=== PATIENT | female | born 1980 | race Caucasian/White ===

== ENCOUNTER 2020-07-26 21:13 | Emergency (ER) | payer OTHER, SELFPAY ==
[2020-07-26 21:14] VITALS: BP 149/91; PULSE 58; RESP 16; TEMP 36.1; O2SAT 100; BMI 30.7
--- NOTE | 2020-07-26 21:35 | ED.VISSUMM ---
- ER Visit Summary Date of Service: 07/26/20 Chief Complaint: Nausea, vomiting, abdominal pain History of Present Illness: The patient is a 39 F who presents with nausea and vomiting for the past 3 days. Patient states she is unable to keep anything down. Patient was seen at [facility] in [place] today. Patient states she had lab work and a CT scan of her brain and sinuses which were negative. Patient states she was given Zofran ODT which has not been helping. Patient states she was told she had a sinusitis and was given antibiotics. Patient admits to some cramping abdominal pain that comes on just prior to vomiting. Patient states it goes away after she vomits. Patient admits to subjective chills. Patient denies any urinary complaints. Physical Examination: Vital signs are stable. Patient is afebrile. Patient is in no acute distress. Oral mucosa is pink and moist. Neck is supple. Trachea is midline. There is no JVD. Heart was regular rate and rhythm. Lungs are clear and equal bilateral. Abdomen is soft. Bowel sounds are normal. There is minimal diffuse tenderness. There is no rebound or guarding noted. Cranial nerves II through XII are intact. There are no focal motor or sensory deficits noted. Extremities are intact. There is no calf tenderness or edema. Test Results: CBC, comprehensive metabolic profile, and lipase were obtained were all within normal limits. Urinalysis was obtained and was within normal limits. CT scan of the abdomen and pelvis with oral and IV contrast was ordered and is pending. Emergency Department Course and Treatment: Patient was given IV fluids and Zofran here. Patient had minimal relief of her nausea with this. Patient was given an injection of Phenergan. Patient states this did help but her nausea started to come back while she was drinking the oral contrast for CT of the abdomen. Patient was ordered another dose of Phenergan however she preferred something IV and requested Zofran again. Patient was given a dose of Zofran again. Disposition: Care of the patient was turned over to the oncoming physician pending CT scan. Impression: 1. Nausea and vomiting 2. Abdominal pain This note was generated with [employer] dictation software. It may contain incorrect words, spelling, and punctuation that were not noted in review of the chart prior to signing ED Disposition - Plan for ED Patient: Referrals: [facility] Doctor,Out of [NON-STAFF] -
[2020-07-26] MEDS: Ondansetron 4 MG/2 ML Vial IV ×2 (21:43→23:34)
[2020-07-26] MEDS: 0.9% Normal Saline 1,000 ML 1000 ML IV (21:43)
[2020-07-26 21:46] LABS: Absolute Lymphocyte Count 1.37 X10^3/uL (0.83-4.51); Absolute Neutrophil Count 4.4 X10^3/uL (2.0-7.7); Basophil# 0.01 X10^3/uL; Basophil% 0.2 % (0-1); Eosinophil# 0.03 X10^3/uL; Eosinophils% 0.5 % (0-5); Hematocrit 42.2 % (37-47); Lymphocyte # 1.37 X10^3/ul (4.0); Lymphocyte % 21.3 % (19-41); Mean Corp Hgb Conc 33.2 g/dL (32-36); Mean Corpuscular Volume 93.6 fL (81-99); Mean Platelet Vol. 9.5 fl (6.2-12.0); Monocyte# 0.56 X10^3/uL; Monocyte% 8.7 % (0-10); NRBC Flagged by Analyzer 0 % (0-5); Neutrophil # 4.44 X10^3/uL (2.7-7.7); Platelet Count 268 K/mm3 (150-450); RBC Distribution Width CV 12.7 % (11.6-14.6); RBC Distribution Width SD 43.8 fl (35.1-43.9); Red Blood Count 4.51 M/mm3 (4.2-5.4); White Blood Count 6.4 K/mm3 (4.4-11.0)
[2020-07-26] MEDS: proMETHazine 25 MG/ML Syringe 12.5 MG IM (22:17)
[2020-07-26 22:18] LABS: ALB/GLOB Ratio 1.2 RATIO (0.9-2.4); AST(SGOT) 21 U/L (15-37); Alanine Aminotransfer ALT/SGPT 17 U/L (13-56); Albumin, Serum 4.2 g/dL (3.2-5.0); Alkaline Phosphatase 65 U/L (45-117); Anion Gap 7 (5-15); BUN 11 mg/dL (7-18); BUN/Creat Ratio 14.6 RATIO (10-20); Calcium,Total 8.7 mg/dL (8.5-10.1); Chloride 110 mmol/L (98-107); Creatinine, Serum 0.75 mg/dL (0.55-1.02); EST Glomerular Filtration Rate 91 mL/min (>60); Est Glom Filt Rate - Afr Amer 111 mL/min (>60); Estimated Creatinine Clearance 80.44 ml/min; Globulin 3.5 g/dL (2.2-4.2); Glucose 85 mg/dL (74-106); Lipase 54 U/L (73-393); Potassium 3.6 mmol/L (3.5-5.1); Protein, Total 7.7 g/dL (6.4-8.2); Sodium Level 141 mmol/L (136-145)
[2020-07-26 22:48] LABS: Bacteria 0 SEEN /hpf (None Seen); White Blood Cells 0 SEEN /hpf (0-5)
[2020-07-26 22:50] LABS: Color, Urine Yellow (Yellow); Glucose, Dipstick Normal (Normal); Leukocyte Esterase-Dipstick Negative /ul (Negative); Nitrite-Dipstick Negative (Negative); Occult Blood-Urine 25 /ul (Negative); Protein-Dipstick 15 mg/dl (Negative); Urine Bilirubin Dipstick Negative (Negative); Urine Clarity Sl. Cloudy (Clear); Urine Urobilinogen 1 mg/dl (Normal); Urine pH 6.5 (5.0 - 8.0)
[2020-07-26 22:54] LABS: Ketone-Dipstick 150 mg/dl (Negative)
[2020-07-26 22:59] LABS: Amorphous Sediment 1+ URATE; Mucous, Urine 3+ /hpf (<or=2+); Red Blood Cells-Urine 0-5 SEEN /hpf (0-5); Squamous Epithelial Cells - UA 0-5 SEEN /hpf (5-10)
[2020-07-26 23:29] VITALS: BP 121/86; PULSE 57; RESP 16; O2SAT 100
[2020-07-27 01:53] VITALS: BP 114/80; PULSE 53; RESP 16; O2SAT 100
[2020-07-27] MEDS: Metoclopramide 10 MG/2 ML Vial 5 MG IV (02:51)
--- NOTE | 2020-07-27 03:19 | ED.DEP ---
ED Disposition - Plan for ED Patient: Disposition: Home or Assisted Living Diagnosis: Diffuse abdominal pain, Acute gastritis without bleeding Instructions: ED Gastritis, ED Abdominal Pain Unkn Cause Fem Prescriptions: Dicyclomine HCl [Bentyl] 20 mg PO Q6H PRN #20 cap PRN Reason: abdominal pain Transmission Status: Pending to [id number] Metoclopramide [Reglan] 10 mg PO Q6H PRN #15 tab PRN Reason: Nausea/Vomiting Transmission Status: Pending to [id number] Referrals: [facility],Out of [NON-STAFF] - 3-5 Days if not improving
[2020-07-27 03:26] VITALS: BP 113/79; PULSE 79; RESP 16; O2SAT 100
--- NOTE | 2020-07-27 21:34 | CT_ITS ---
STUDY: CT ABDOMEN AND PELVIS WITH CONTRAST REASON FOR EXAM: Female, 39 years old. NAUSEA AND VOMITING X 3 DAYS,CHILLS -- HX:ZORAN''S DISEASE,HYSTERECTOMY,TUBAL RADIATION DOSAGE (If Supplied By Facility): CTDIvol = ( 15.35 ) mGy, DLP = ( 910.23 ) mGycm TECHNIQUE: Transaxial images were obtained from the dome of the diaphragm to the symphysis pubis without oral contrast. Oral and amp; IV Gastrografin and amp; 100mL Isovue-370 was administered. Sagittal and coronal images were reconstructed. Individualized dose optimization techniques were used for this CT. COMPARISON: None. FINDINGS: The visualized lung bases are unremarkable. The visualized portions of the heart are within normal limits. Subtle hypoattenuated lesions within the left liver lobe near the gallbladder foci measuring 2.7 x 2.0 cm and 1.4 x 2.3 cm. Differential diagnosis includes focal areas of fatty infiltration. Normal gallbladder and extrahepatic biliary system. Normal spleen. Normal pancreas. Normal bilateral adrenal glands. Small low-attenuation structure within the right mid lower renal pole measuring 5.5 mm, too small to characterize and statistically consistent with a cyst. Otherwise normal right kidney. Normal left kidney. Normal visualized stomach. Normal small intestine. Mild thickening of the wall throughout the ascending and transverse colon suggestive of early colitis. The appendix is visualized and appears normal. Normal abdominal aorta. Normal inferior vena cava. Normal retroperitoneum. Normal urinary bladder. Bilateral tubal ligation cysts demonstrated. Nonspecific bilateral follicular cysts. Normal abdominal wall. There are mild degenerative changes of the visualized lumbar spine. CT/Abdomen/Pelvis WITH Contrast IMPRESSION: Possible mild/early colitis. No acute appendicitis or bowel obstruction. Small low-attenuation lesions within the liver, incompletely characterized by current exam and most likely representing benign process given patient''s age. Further characterization with CT or MRI of the upper abdomen in nonacute setting, 3 phase protocol recommended. Electronically Signed: Rita Spence MD at 1:01 EST , Service support ,
== END 2020-07-27 03:27 | disposition home or self-care (01) ==
PROVIDERS: Emergency Provider Emergency Medicine
DX: K29.70 Gastritis, unspecified, without bleeding (principal); R10.84 Generalized abdominal pain; E03.9 Hypothyroidism, unspecified; F90.9 Attention-deficit hyperactivity disorder, unspecified type; K21.9 Gastro-esophageal reflux disease without esophagitis; Z79.899 Other long term (current) drug therapy
CPT/HCPCS: 74177; 80053; 81001; 83690; 85025; 96361; 96372; 96374; 96375; 96376; 99283; J7030; Q9967; A4216; J2405

== ENCOUNTER 2023-05-29 16:07 | Emergency (ER) | payer MEDICAID, SELFPAY ==
[2023-05-29 16:10] VITALS: BP 122/89; PULSE 84; RESP 16; TEMP 36.3; O2SAT 100; BMI 25.7
--- NOTE | 2023-05-29 16:36 | EDS_ITS ---
HPI HPI - GI History of Present Illness Chief Complaint: Nausea/Vomiting Informant: patient Abdominal Pain/Flank Pain Onset: Today Context: Gradual Onset Timing: Continuous Current Severity: Mild Maximum Severity: Mild Worsened by: Nothing Relieved by: Nothing Nausea/Vomiting/Emesis GI Symptom: Positive for Nausea and Vomiting Onset: Today Severity: Mild Diarrhea/Melena/Hematochezia GI Symptom: Positive for Diarrhea; Negative for Melena or Hematochezia Onset: Today Stool Quality: Positive for Loose Associated Symptoms Associated Symptoms: Negative for Dysuria, Frequency, Hematuria or Urgency Narrative Narrative: 42-year-old female with past medical history of Alvino thyroiditis. Prior hysterectomy. 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 She had similar symptoms with nausea vomiting diarrhea about a week ago resolved and returned in the last 24 hours. No hematemesis. No melena. Currently no fever. No dysuria. Says she has not been urinating today and feels dehydrated. Only denies any significant abdominal pain. Prior similar symptoms: Yes Recent Illness/Hospitalization: No PFSH PFS Medical History (Updated 05/29/23 @ 19:[address] Juan Banks MD) Nausea Home Medications dextroamphetamine-amphetamine 20 mg tablet 20 mg PO BID 07/26/20 [History Last Taken Unknown] duloxetine 60 mg capsule,delayed release 60 mg PO DAILY 07/26/20 [History Last Taken Unknown] lamotrigine 150 mg tablet 150 mg PO BID 07/26/20 [History Last Taken Unknown] levothyroxine 50 mcg tablet 50 mcg PO DAILY 07/26/20 [History Last Taken Unknown] liothyronine 5 mcg tablet 5 mcg PO DAILY 07/26/20 [History Last Taken Unknown] pantoprazole 20 mg tablet,delayed release 20 mg PO DAILY 07/26/20 [History Last Taken Unknown] dicyclomine 10 mg capsule 20 mg (2 x 10 mg) PO Q6H PRN abdominal pain #20 caps 07/27/20 [Rx Last Taken Unknown] metoclopramide HCl 10 mg tablet 10 mg PO Q6H PRN Nausea/Vomiting #15 tabs 07/27/20 [Rx Last Taken Unknown] ondansetron 4 mg disintegrating tablet 4 mg PO Q6H PRN nausea and vomiting #7 tabs 05/29/23 [Rx Last Taken Unknown] Allergy/AdvReac Type Severity Reaction Status Date / Time venlafaxine [From Effexor] AdvReac Swelling Verified 05/29/23 16:10 Social History Smoking Status: Never smoker ROS ROS ED ROS Narrative Nausea, vomiting and diarrhea. Review of Systems ROS Unobtainable: Denies due to encephalopathy Constitutional Constitutional ED: Denies chills or fever(s) ENT ENT ED: Denies ear pain Respiratory/Chest Respiratory/Chest: Denies cough or dyspnea Gastrointestinal Gastrointestinal: Reports diarrhea, nausea and vomiting; Denies abdominal pain, constipation or melena Genitourinary Genitourinary ED: Denies dysuria or hematuria Musculoskeletal Musculoskeletal: Denies arthralgias Integumentary Denies abscess Neurologic Neurologic: Denies headache(s) Psychiatric Psychiatric: Denies anxiety Endocrine Endocrinology: Denies polydipsia Hematologic/Lymphatic Hematologic/Lymphatic: Denies easy bleeding Allergic/Immunologic Allergic/Immunologic ED: Denies mouth swelling or tongue swelling EXAM Physical Exam Narrative Exam Narrative: 42-year-old female vital signs are stable initial blood pressure 132/89. She does not look septic toxic. Does look mildly dehydrated. H EENT exam mild dry mucous membranes. Neck nontender no lymphadenopathy. Lungs clear to auscultation bilaterally. Heart regular rhythm rate about 80 no murmur. Chest were nontender. Abdomen soft nontender. Nondistended normal bowel sounds no peritoneal signs. No right upper or right lower quadrant tenderness. No hernia or mass. Back nontender. Moving all 4 extremities. Nontender no edema. Neuro logically she is awake and alert with no focal motor deficits. Skin unremarkable. Const Vital Signs: 05/29/23 16:10 Temperature 97.4 F L Temperature Source Temporal Pulse Rate 84 Respiratory Rate 16 Blood Pressure 122/89 H Blood Pressure Mean 100 Pulse Ox 100 Positive well nourished and well developed; Negative for obese, cachectic, contractures or unkempt General Appearance ED: well developed and NAD; Negative for unkempt, cachectic, contractures or pallor Nutritional Appearance: Negative for cachectic or obese HEENT Reports dry mucous membranes; Denies moist mucous membranes normocephalic and atraumatic; Negative for trauma or tenderness Mouth ED: Yes dry mucous membranes Mouth: dry mucous membranes Eyes PERRL and EOMs intact bilaterally General Eye ED: Negative for pale conjunctiva or scleral icterus Neck no lymphadenopathy, supple and no JVD General: Negative for tenderness Carotids: Negative for other Lymph Lymphatic: Negative for other Resp normal respiratory effort and clear to auscultation bilaterally Effort and Inspection: Negative for respiratory distress Auscultation: Negative for rales, rhonchi or wheezes Cardio regular rhythm, S1 normal heart sound, S2 normal heart sound and no murmurs Rate: Negative for bradycardia or tachycardic GI non-tender, non-distended and no masses Inspection: Negative for abdominal distention Auscultation: normoactive bowel sounds Palpation: soft; Negative for tender, guarding, rigid, hepatomegaly, splenomegaly, hernia, mass, pulsatile mass or rebound tenderness present Back/Spine no CVA tenderness General Back: Negative for CVA tenderness Cervical Spine: Negative for cervical spine tenderness Thoracic Spine / Upper Back: Negative for thoracic spinal tenderness Lumbar Spine / Lower Back: Negative for lumbar spinal tenderness Coccyx: Negative for other Extremity full ROM General Extremety ED: Negative for edema or tenderness General Extremity: Negative for edema Neuro CN's II-XII intact bilaterally and moves all extremities Sensorium / Orientation: alert, oriented to person, oriented to place and oriented to time; Negative for orientation impaired, confused, lethargic or stuporous Motor Exam: strength 5/5 throughout Psych mental status grossly normal and thought process normal Appearance: Negative for unkempt Attitude: No agitated Mood & Affect: Negative for depressed, anxious or tearful Skin no wounds General Skin Exam: Negative for jaundice or pallor Lesions: no lesions Rashes: no rashes Trauma: Negative for abrasion Nails: Negative for discolored MDM MDM MDM Narrative Medical decision making narrative: 42-year-old with nausea, vomiting and diarrhea. Clinically sounds like a viral syndrome. She did not want to be COVID tested and I do not think is necessary. She will be treated with IV fluids. Zofran for nausea. Clinically she does look dehydrated. I will check screening labs because she had just twice in the last 2 weeks. Her abdomen is completely benign I do not think she needs any imaging. Repeat exam patient doing well at 7:27 PM. She will be discharged home. Zofran as needed for nausea. Fluids and rest. Return if worse or follow-up if not improving. Abdomen is nontender. History & Record Review Discussion w/independent historian: Patient Additional record(s) reviewed:: Prior inpatient record, Prior outpatient record, Prior ED visit and Prior labs Lab Data Attestation: I reviewed the patient's lab results. Lab results narrative: CBC normal. White count of 5. H&H 13 and 39. Platelets 222. Electrolytes unremarkable gap of 3 normal BUN of 17 creatinine 0.7. Glucose 97. Labs: Laboratory Results - last 24 hr 05/29/23 16:50 WBC 5.1 RBC 4.28 Hgb 13.5 Hct 39.1 MCV 91.4 MCH 31.5 MCHC 34.5 RDW Std Deviation 41.9 RDW Coeff of [place] 12.7 Plt Count 222 MPV 9.5 Immature Gran % (Auto) 0.200 Neut % (Auto) 86.5 H Lymph % (Auto) 4.9 L [place] % (Auto) 8.0 Eos % (Auto) 0.2 Baso % (Auto) 0.2 Absolute Neuts (auto) 4.4 Absolute Lymphs (auto) 0.25 L Nucleated RBC % 0 Differential Comment SCANNED Sodium 143 Potassium 3.4 L Chloride 111 H Carbon Dioxide 29.0 Anion Gap 3 L BUN 17 Creatinine 0.76 Estim Creat Clear Calc 80.58 Est GFR (MDRD) Af Amer 108 Est GFR (MDRD) Non-Af 89 BUN/Creatinine Ratio 22.5 H Glucose 97 Calcium 8.7 Discharge Plan Triage Chief Complaint: Nausea/Vomiting ED Provider: Juan Banks Dx/Rx/DC Orders Clinical Impression: Gastroenteritis, Viral syndrome Instructions: ED Gastroenteritis, Viral (Adult) Prescriptions: New ondansetron 4 mg tablet,disintegrating 4 mg PO Q6H PRN (Reason: nausea and vomiting) Qty: 7 0RF No Action lamotrigine 150 MG tablet 150 mg PO BID liothyronine 5 MCG tablet 5 mcg PO DAILY pantoprazole 20 MG tablet 20 mg PO DAILY levothyroxine 50 MCG tablet 50 mcg PO DAILY dextroamphetamine-amphetamine 20 MG tablet 20 mg PO BID duloxetine 60 MG capsule 60 mg PO DAILY dicyclomine 10 MG capsule 20 mg PO Q6H PRN (Reason: abdominal pain) Qty: 20 0RF metoclopramide HCl 10 MG tablet 10 mg PO Q6H PRN (Reason: Nausea/Vomiting) Qty: 15 0RF Primary Care Provider: Care Physician,No Primary Referrals: Tai Banegas MD [Med Staff - Senior Managing Director] - As Needed NOT,DEFINED [Non-Staff] - Activity Restrictions/Additional Instructions: Plenty of fluids and rest. Zofran as needed for nausea. Follow-up if not improving or return if worse. Your labs and blood counts were normal. Disposition Disposition: Home, Self Care
[2023-05-29] MEDS: Ondansetron 4 MG/2 ML Vial IV (16:52)
[2023-05-29] MEDS: 0.9% Normal Saline (1000mL) 1,000 ML 1000 ML IV (16:52)
[2023-05-29 17:04] LABS: Absolute Lymphocyte Count 0.25 X10^3/uL (0.83-4.51); Absolute Neutrophil Count 4.4 X10^3/uL (2.0-7.7); Basophil# 0.01 X10^3/uL; Basophil% 0.2 % (0-1); Eosinophil# 0.01 X10^3/uL; Eosinophils% 0.2 % (0-5); Hematocrit 39.1 % (37-47); Hemoglobin 13.5 g/dL (12.0-15.0); Lymphocyte # 0.25 X10^3/ul (0.83-4.51); Lymphocyte % 4.9 % (19-41); Mean Corp Hgb Conc 34.5 g/dL (32-36); Mean Corpuscular Hgb 31.5 pg (27.0-32.0); Mean Corpuscular Volume 91.4 fL (81-99); Mean Platelet Vol. 9.5 fl (6.2-12.0); Monocyte# 0.41 X10^3/uL; NRBC Flagged by Analyzer 0 % (0-5); Neutrophil # 4.44 X10^3/uL (2.7-7.7); Neutrophil % 86.5 % (47-70); POSITIVE DIFFERENTIAL YES; Platelet Count 222 K/mm3 (150-450); RBC Distribution Width CV 12.7 % (11.6-14.6); RBC Distribution Width SD 41.9 fl (35.1-43.9); Red Blood Count 4.28 M/mm3 (4.2-5.4); White Blood Count 5.1 K/mm3 (4.4-11.0)
[2023-05-29 17:09] LABS: Differential Indicated SCAN CRITERIA MET
[2023-05-29 17:38] LABS: Differential Comment SCANNED
[2023-05-29 17:49] LABS: Anion Gap 3 (5-15); BUN 17 mg/dL (7-18); BUN/Creat Ratio 22.5 RATIO (10-20); Calcium,Total 8.7 mg/dL (8.5-10.1); Chloride 111 mmol/L (98-107); Creatinine, Serum 0.76 mg/dL (0.55-1.02); EST Glomerular Filtration Rate 89 mL/min (>60); Est Glom Filt Rate - Afr Amer 108 mL/min (>60); Estimated Creatinine Clearance 80.58 ml/min; Glucose 97 mg/dL (74-106); Potassium 3.4 mmol/L (3.5-5.1); Sodium Level 143 mmol/L (136-145)
== END 2023-05-29 19:39 | disposition home or self-care (01) ==
PROVIDERS: Emergency Provider Emergency Medicine; Visit Provider Emergency Medicine
DX: A08.4 Viral intestinal infection, unspecified (principal); Z79.899 Other long term (current) drug therapy
CPT/HCPCS: 80048; 85025; 96361; 96374; 99283; J7030; J2405